=== PATIENT | female | born 1980 | race Caucasian/White ===

== ENCOUNTER 2019-01-06 17:42 | Emergency (ER) | payer OTHER ==
[~2019-01-06] VITALS: Ht 160 cm; Wt 63.5 kg
[2019-01-06] MEDS ORDERED: DOXYCYCLINE 10100 MG PO (19:00)
[2019-01-06] MEDS ORDERED: PREDNISONE 10 M10 MG PO (19:00)
[2019-01-06] MEDS ORDERED: TESSALON PERLE100 MG PO (19:00)
[2019-01-06] MEDS ORDERED: VENTOLIN HFA 1818 GM INH (19:00)
[2019-01-06 19:10] VITALS: BP 101/60
== END 2019-01-06 19:11 | disposition home or self-care (01) ==
LOC: ER 17:42
DX: J40 Bronchitis, not specified as acute or chronic (principal); F17.210 Nicotine dependence, cigarettes, uncomplicated; I10 Essential (primary) hypertension; M79.7 Fibromyalgia; G47.00 Insomnia, unspecified; F90.9 Attention-deficit hyperactivity disorder, unspecified type; Z88.0 Allergy status to penicillin

== ENCOUNTER 2019-11-13 01:22 | Emergency (ER) | payer OTHER ==
[~2019-11-13] VITALS: Ht 160 cm; Wt 59.0 kg
[~2019-11-13 01:22] MED LIST: DOXYCYCLINE 10100 MG PO; PREDNISONE 10 M10 MG PO; TESSALON PERLE100 MG PO; VENTOLIN HFA 1818 GM INH
[2019-11-13] MEDS ORDERED: CATAPRES0.3 MG PO (01:34)
[2019-11-13] MEDS ORDERED: NEURONTIN 400M400 M2 PO (01:34)
[2019-11-13] MEDS ORDERED: MELATONIN10 M3 PO (01:35)
[2019-11-13] MEDS ORDERED: AMBIEN 10 MG TA10 MG PO (01:35)
[2019-11-13] MEDS ORDERED: QUETIAPINE FUM300 M1 PO (01:35)
[2019-11-13] MEDS ORDERED: MINIPRESS2 MG PO (01:36)
[2019-11-13] MEDS ORDERED: HYDROXYZINE HCL25 M2 PO (01:36)
[2019-11-13] MEDS ORDERED: CHLORPROMAZINE25 M1 PO (01:37)
[2019-11-13] MEDS ORDERED: CLONAZEPAM 0.50.5 M1 PO (01:38)
[2019-11-13] MEDS ORDERED: NAPROSYN500 MG PO (02:42)
[2019-11-13 03:01] VITALS: BP 114/75
== END 2019-11-13 02:55 | disposition home or self-care (01) ==
LOC: ER 01:22
DX: S40.012A Contusion of left shoulder, initial encounter (principal); S40.011A Contusion of right shoulder, initial encounter; M54.2 Cervicalgia; R07.89 Other chest pain; M79.89 Other specified soft tissue disorders; I10 Essential (primary) hypertension; M79.7 Fibromyalgia; F90.9 Attention-deficit hyperactivity disorder, unspecified type; F17.210 Nicotine dependence, cigarettes, uncomplicated; Z88.0 Allergy status to penicillin; Y04.0XXA Assault by unarmed brawl or fight, initial encounter; Y93.89 Activity, other specified; Y92.89 Other specified places as the place of occurrence of the external cause; Y99.8 Other external cause status